=== PATIENT | female | born 1980 | race Caucasian/White ===

== ENCOUNTER 2017-11-24 20:48 | Emergency (ER) | payer SELFPAY | END 2017-11-25 09:30 | disposition left against medical advice (07) | LOC: D.ER 20:48 | DX: O20.9 Hemorrhage in early pregnancy, unspecified (principal); Z3A.01 Less than 8 weeks gestation of pregnancy ==

== ENCOUNTER 2018-02-08 09:40 | Emergency (ER) | payer MEDICAID ==
[~2018-02-08] VITALS: Ht 162.6 cm; Wt 83.2 kg
[2018-02-08 09:43] VITALS: Ht 162.6 cm; Wt 83.2 kg
[2018-02-08] MEDS ORDERED: MUPIROCIN22 GM TOPICAL (11:05)
[2018-02-08 11:37] VITALS: BP 116/70
== END 2018-02-08 11:41 | disposition home or self-care (01) ==
LOC: D.ER 09:40
DX: S50.311A Abrasion of right elbow, initial encounter (principal); X58.XXXA Exposure to other specified factors, initial encounter; Y93.89 Activity, other specified; Y92.019 Unspecified place in single-family (private) house as the place of occurrence of the external cause; T75.89XA Other specified effects of external causes, initial encounter; O26.892 Other specified pregnancy related conditions, second trimester; Z3A.17 17 weeks gestation of pregnancy

== ENCOUNTER 2018-02-24 11:53 | Emergency (ER) | payer MEDICAID ==
[~2018-02-24] VITALS: Ht 162.6 cm; Wt 84.5 kg
[~2018-02-24 11:53] MED LIST: MUPIROCIN22 GM TOPICAL
[2018-02-24 11:55] VITALS: Ht 162.6 cm; Wt 84.5 kg
[2018-02-24 12:29] VITALS: BP 117/75
== END 2018-02-24 12:30 | disposition home or self-care (01) ==
LOC: D.ER 11:53
DX: O36.8120 Decreased fetal movements, second trimester, not applicable or unspecified (principal); Z3A.19 19 weeks gestation of pregnancy

== ENCOUNTER 2018-04-08 23:15 | Outpatient (CLI) | payer MEDICAID ==
[2018-02-24 11:55] VITALS: BMI 32.0
[2018-04-09 00:53] LABS: UDS - AMPHET NEGATIVE QUAL (NEGATIVE); UDS - BARB NEGATIVE QUAL (NEGATIVE); UDS - BENZO NEGATIVE QUAL (NEGATIVE); UDS - COCAINE NEGATIVE QUAL (NEGATIVE); UDS - OPIATE NEGATIVE QUAL (NEGATIVE); UDS - PCP NEGATIVE QUAL (NEGATIVE); UDS - THC NEGATIVE QUAL (NEGATIVE)
[2018-04-09 01:05] LABS: APPEARANCE CLEAR (CLEAR); BILIRUBIN NEGATIVE (NEGATIVE); COLOR YELLOW (YELLOW); GLUCOSE NEGATIVE (NEGATIVE); KETONE NEGATIVE (NEGATIVE); NITRITE NEGATIVE (NEGATIVE); PROTEIN TRACE mg/dL (NEGATIVE); UROBILINOGEN NORMAL (NORMAL)
[2018-04-09 01:06] LABS: BACTERIA FEW /hpf (NONE SEEN); EPITHELIAL CELLS 0-5 /hpf (0-5); RED CELLS - URINE 0-5 /hpf (0-5); WHITE CELLS - URINE 0-5 /hpf (0-5)
== END 2018-04-09 01:12 | disposition home or self-care (01) ==
LOC: D.LDO 23:15 → D.LD 23:15 → D.LDO 04-09 00:23
PROVIDERS: Obstetrics & Gynecology
DX: O36.8120 Decreased fetal movements, second trimester, not applicable or unspecified (principal); Z3A.25 25 weeks gestation of pregnancy

== ENCOUNTER 2018-05-20 17:33 | Emergency (ER) | payer MEDICAID ==
[2018-02-24 11:55] VITALS: BMI 32.0
== END 2018-05-20 18:42 | disposition left against medical advice (07) ==
LOC: D.ER 17:33
DX: R22.9 Localized swelling, mass and lump, unspecified (principal)

== ENCOUNTER 2018-09-24 19:49 | Emergency (ER) | payer MEDICAID ==
[~2018-09-24] VITALS: Ht 162.6 cm; Wt 78.6 kg
[2018-09-24 20:07] VITALS: Ht 162.6 cm; Wt 78.6 kg
[2018-09-24] MEDS ORDERED: NAPROSYN500 MG PO (22:22)
[2018-09-24] MEDS ORDERED: CORTISPORIN OTI10 M1 RIGHT EAR (22:22)
[2018-09-24] MEDS ORDERED: AMOXICILLI400 MG/5 M PO (22:22)
[2018-09-24 22:48] VITALS: BP 138/77
== END 2018-09-24 22:49 | disposition home or self-care (01) ==
LOC: D.ER 19:49
DX: H92.01 Otalgia, right ear (principal); H61.21 Impacted cerumen, right ear

== ENCOUNTER 2019-03-07 13:44 | Emergency (ER) | payer MEDICAID ==
[~2019-03-07] VITALS: Ht 162.6 cm; Wt 72.7 kg
[~2019-03-07 13:44] MED LIST changes: +AMOXICILLI400 MG/5 M PO; +CORTISPORIN OTI10 M1 RIGHT EAR; +NAPROSYN500 MG PO
[2019-03-07 13:47] VITALS: Ht 162.6 cm; Wt 72.7 kg
[2019-03-07 14:27] LABS: HCG URINE NEGATIVE (NEGATIVE)
[2019-03-07] MEDS ORDERED: IBUPROFEN800 MG PO (16:41)
[2019-03-07] MEDS ORDERED: BACLOFEN20 M1 PO (17:33)
[2019-03-07 17:47] VITALS: BP 111/67
== END 2019-03-07 17:48 | disposition home or self-care (01) ==
LOC: D.ER 13:44
PROVIDERS: Family Medicine
DX: M54.9 Dorsalgia, unspecified (principal); Y04.2XXA Assault by strike against or bumped into by another person, initial encounter